=== PATIENT | female | born 1970 | race Caucasian/White ===

== ENCOUNTER 2017-06-27 18:29 | Emergency (ER) ==
[2017-06-27 18:36] VITALS: BP 158/94; TEMP 99.3; BMI 30.7
[2017-06-27] MEDS ORDERED: BOOSTRIX IM ONE (19:14)
--- NOTE | 2017-06-27 19:19 | ED.PDOC ---
General ED Provider: Dr. RADHA JOHNSON Chief Complaint: Bite Stated Complaint: staes that she was bit by a stray dog that was running away from a house fire. Sustained puncture wounds on the right lateral and medical ankle. Had severe pain initially but now better after wound cleansing. has been on Amoxil for the past 7 days for sinus infection. Time Seen by Physician: 19:05 Mode of Arrival: Walk-In Information Source: Patient Primary Care Provider: IESHA RUIZ Nursing and Triage Documentation Reviewed and Agree: Yes Reviewed sepsis parameters & appropriate labs ordered?: No System Inflammatory Response Syndrome: Not Applicable Sepsis Protocol: For patient's 13 years and over: Temp is 96.8 and below OR 101 and greater Pulse >90 BPM Resp >20/minute Acutely Altered Mental Status Are patient's symptoms suggestive of a new infection, such as: -Pneumonia -Skin, Soft Tissue -Endocarditis -UTI -Bone, Joint Infection -Implantable Device -Acute Abdominal Infection -Wound Infection -Meningitis -Blood Stream Catheter Infection -Unknown System Inflammatory Response Syndrome: Not Applicable Skin Complaint Exam - Laceration/Lower Ext. Complaint/Exam Location of Injury: Right, Ankle Mechanism of Injury: Laceration (from a dog bite, Multple puncture wounds on the right Ankle- medial and lateral aspects. 2cm Laceration noted on the medial aspect of the wound ), Abrasion Onset/Duration: 1 hour ago Symptoms Are: Still present Initial Severity: Severe Current Severity: Mild Aggravating: Movement Associated Signs and Symptoms: Denies: Fever, Chills, Erythema, Numbness, Tingling Differential Diagnoses: Abrasion, Laceration, Puncture Wound Review of Systems - Review Of Systems Constitutional: Reports: No symptoms Eyes: Reports: No symptoms Ears, Nose, Mouth, Throat: Reports: No symptoms Respiratory: Reports: No symptoms Cardiac: Reports: No symptoms GI: Reports: No symptoms : Reports: No symptoms Musculoskeletal: Reports: Joint pain Skin: Reports: Other (Left ankle skin lacerations. ) Neurological: Reports: No symptoms Endocrine: Reports: No symptoms Hematologic/Lymphatic: Reports: No symptoms All Other Systems: Reviewed and Negative Past Medical History - Past Medical History Previously Healthy: Yes Endocrine: Reports: None Cardiovascular: Reports: None Respiratory: Reports: None Hematological: Reports: None Gastrointestinal: Reports: None Genitourinary: Reports: None Neuro/Psych: Reports: Depression Musculoskeletal: Reports: None Cancer: Reports: None Last Menstrual Period: N/A Other Pertinent Past Medical History: sinusitis - Surgical History General Surgical History: Reports: Hysterectomy - Family History Family History: Reports: Unknown - Social History Smoking Status: Never smoker Hx Substance Use: No Alcohol Screening: Occasionally - Immunizations Tetanus Shot up to Date: No Physical Exam - Physical Exam Appearance: Well-appearing Pain Distress: Mild Respiratory: Airway patent Skin: Warm, Dry Neurological: Alert, Oriented Psychiatric: Anxious Procedures - Laceration/Wound Repair Right ankle Wound Description: Linear (on the medal aspect of the ankle Measuring 2 cm. ) Wound Length (cm): 2 cm Wound Width: 0.1 Wound Depth: 0.3 Wound Explored: Clean Wound Irrigated: Yes Wound Prep: Saline, Hibiclens Anesthesia: Lidocaine Wound Repaired With: Sutures Suture Size and Type: 4.0 Ethlone Number of Sutures: 3 (simple interrupted. ) Layer Closure?: Yes Sterile Dressing Applied?: Yes Splint Applied?: No Sling Applied?: No Progress: tolerated procedure well - Incision and Drainage Irrigated: No Re-Evaluation - Re-Evaluation Time of Re-Evaluation: 20:05 Status: Improved Vital Signs Stable: Yes Critical Care Note - Critical Care Note Total Time (mins): 0 Course - Course Orders, Labs, Meds: Orders Category Date Time Status Diphth,Pertuss(Acell),Tet Vac [Boostrix] MEDS 06/27/17 19:14 Discontinued 0.5 ml IM .ONCE ONE Lidocaine HCl/Pf [Lidocaine HCl 1% Sdv] MEDS 06/27/17 19:44 Discontinued 5 ml SUBCUT ONCE STA Medications Discontinued Medications Generic Name Dose Route Start Last Admin Trade Name Ahsanq PRN Reason Stop Dose Admin Diphtheria/Pertussis/Tetanus Vacc 0.5 ml 06/27/17 19:14 06/27/17 19:23 Boostrix IM 06/27/17 19:15 0.5 ml .ONCE ONE Administration Lidocaine HCl 5 ml 06/27/17 19:44 06/27/17 19:51 Lidocaine Hcl 1% Sdv SUBCUT 06/27/17 19:45 5 ml ONCE STA Administration Vital Signs: Temp Pulse Resp BP Pulse Ox 06/27/17 18:30 99.3 F 77 18 158/94 H 98 Departure - Departure Time of Disposition: 19:23 Disposition: HOME SELF-CARE Discharge Problem: Dog bite Qualifiers: Encounter type: initial encounter Qualified Code(s): W54.0XXA - Bitten by dog, initial encounter Instructions: Animal Bite (ED) Condition: Stable Pt referred to PMD for follow-up: Yes IPMP verified?: No Additional Instructions: Clean the wound Twice a day Apply Dressing on it Take Medications as prescribed. Stop taking Amoxil. as you will be on Augmentin for the nextt 10 days. Follow up with Pcp in 3-5 days. Return if worse. Prescriptions: Amoxicillin/Potassium Clav [Augmentin 875-125 mg Tab] 1 tab PO Q12HR #20 tablet Ibuprofen [Motrin] 600 mg PO Q6H PRN #30 tablet PRN Reason: Analgesia Tramadol HCl [Ultram] 50 mg PO Q6H PRN #10 tablet PRN Reason: Severe Pain Allergies/Adverse Reactions: Allergies No Known Allergies Allergy (Unverified 06/27/17 19:17) Home Medications: Ambulatory Orders Amoxicillin [Amoxil] 500 mg PO BID 06/27/17 Amoxicillin/Potassium Clav [Augmentin 875-125 mg Tab] 1 tab PO Q12HR #20 tablet 06/27/17 Cholecalciferol (Vitamin D3) [Vitamin D3] 5,000 unit PO DIRECTED 06/27/17 Ibuprofen [Motrin] 600 mg PO Q6H PRN #30 tablet 06/27/17 Sertraline HCl [Zoloft] 100 mg PO DAILY 06/27/17 Tramadol HCl [Ultram] 50 mg PO Q6H PRN #10 tablet 06/27/17 Disposition Discussed With: Patient, Family
[2017-06-27] MEDS ORDERED: LIDOCAINE HCL 1% SDV SUBCUT STA (19:44)
== END 2017-06-27 20:09 | disposition home or self-care (01) ==
LOC: ED 18:29
DX: S91.051A Open bite, right ankle, initial encounter (principal); W54.0XXA Bitten by dog, initial encounter
CPT/HCPCS: 90471; 90715; 99283